=== PATIENT | female | born 1955 | race African-American/Black ===

== ENCOUNTER → 2020-09-30 | Outpatient (CLI) | payer MEDICARE ==
--- NOTE | 2020-09-30 12:41 | KCIC ---
INDICATION: Osteoporosis screening. Postmenopausal evaluation COMPARISON: None. TECHNIQUE: Bone densitometry was performed through the lumbar spine and proximal femur. FINDINGS: Lumbar Spine: BMD: 1.08 T-Score: 0.6 Proximal Femur: BMD: 0.82 T-Score: -1.0 IMPRESSION: 1. Lumbar spine falls within the normal range. 2. Proximal femur falls within the osteopenic range. Electronically signed by: Jam Mary MD (09/30/2020 12:38 PM) [id number]
== END ==
LOC: KCIC DEXA 10:12
PROVIDERS: ATTEND Family Medicine
DX: M85.88 Other specified disorders of bone density and structure, other site (principal); M89.9 Disorder of bone, unspecified; N95.9 Unspecified menopausal and perimenopausal disorder
CPT/HCPCS: 77080

== ENCOUNTER → 2021-02-12 | Outpatient (CLI) | payer MEDICARE ==
--- NOTE | 2021-02-12 16:29 | KCIC ---
PQRS Compliance Statement: One or more of the following individualized dose reduction techniques were utilized for this examinat ion: 1. Automated exposure control 2. Adjustment of the mA and/or kV according to patient size 3. Use of iterative reconstruction technique CT THORAX WO Clinical Indication: Reason: Hx. lung nodules. Comparison: None. TECHNIQUE: Helical CT imaging of the chest is performed without IV contrast. Findings: There is no adenopathy in the chest. There is ectasia of the ascending thoracic aorta, diameter is 4. 1 cm. There is coronary artery disease. Mild mitral annular calcification. Cardiac size is normal, no pericardial effusion. There is no pleural abnormality. The central airways are patent. There is minimal linear scarring or discoid atelectasis in the posterior basilar right lower lobe, inferior lingula, and the medial left lower lobe. Lungs are otherwise clear. A noncalcified pulmonary nodule is not identified. Atherosclerotic upper abdominal aorta. There is left adrenal gland hyperplasia. Moderate degenerative spondylosis of the thoracic spine. There is multilevel vacuum disc phenomenon. There is disc space narrowing and endplate spurring of T1/T2 is partial fusion of the T9/T10 disc spa ce. There is anterior wedging of the T8 and T6 vertebral bodies that is mild. No acute fracture is se en. IMPRESSION: 1. No noncalcified pulmonary nodules are identified. 2. Ectasia of the ascending thoracic aorta. 3. Coronary artery disease. 4. Degenerative spondylosis of the thoracic spine. Electronically signed by: Jimi Rosales MD (02/12/2021 4:26 PM) [id number]
== END ==
LOC: KCIC CT 12:37
PROVIDERS: ATTEND Family Medicine
DX: I77.810 Thoracic aortic ectasia (principal); M47.814 Spondylosis without myelopathy or radiculopathy, thoracic region; I25.10 Atherosclerotic heart disease of native coronary artery without angina pectoris; E27.8 Other specified disorders of adrenal gland
CPT/HCPCS: 71250

== ENCOUNTER → 2021-02-24 | Day surgery (SDC) | payer MEDICARE ==
[~2021-02-24] MED LIST: IV RINGERS,LACTATED 1000ML 1,000 ML IV SCH; LIDOCAINE 2% PF 5 ML VIAL. ONE; PROPOFOL 10 MG/ML (20ML) VIAL. IV ONE; ePHEDrine PF IN SALINE 50 MG/10 ML SYRINGE. IV ONE
--- NOTE | 2021-02-24 13:20 | PDOC4 ---
PROCEDURE Procedure Colonoscopy Indication: screening. Meds: per anesthesia Findings: PEDRITO normal. --'Scope advanced to cecum. Prep adequate. Mucosa normal. Multiple diverticula, sigmoid. No polyps, masses, etc. [place]. well. IMP: Diverticulosis. Otherwise unremarkable exam. REC: Resume home meds and diet. March f/u with me prn. Consider repeat exam in 10 years. GRACY MOSS MD Feb 24, 2021 13:19
[2021-02-24 13:40] VITALS: BP 118/65
== END | disposition home or self-care (01) ==
LOC: ENDOS 11:29
PROVIDERS: ATTEND Internal Medicine Gastroenterology
DX: Z12.11 Encounter for screening for malignant neoplasm of colon (principal); K57.30 Diverticulosis of large intestine without perforation or abscess without bleeding; I10 Essential (primary) hypertension; J44.9 Chronic obstructive pulmonary disease, unspecified; G47.30 Sleep apnea, unspecified; E66.9 Obesity, unspecified; M19.90 Unspecified osteoarthritis, unspecified site; M10.9 Gout, unspecified; E03.9 Hypothyroidism, unspecified; F41.9 Anxiety disorder, unspecified; F32.9 Major depressive disorder, single episode, unspecified; Z87.891 Personal history of nicotine dependence; Z98.51 Tubal ligation status; Z98.890 Other specified postprocedural states; Z91.040 Latex allergy status; Z72.89 Other problems related to lifestyle; Z20.822 Contact with and (suspected) exposure to COVID-19
CPT/HCPCS: 87426; G0121; J2704; 45378